=== PATIENT | female | born 1985 | race Caucasian/White ===

== ENCOUNTER 2018-11-07 05:27 | Day surgery (SDC) | payer OTHER ==
[~2018-11-07 05:27] MED LIST: PROTONIX40 MG PO; SEPTRA DS TABLE1 TAB PO
[2018-11-07] MEDS ORDERED: NEXIUM 24HR20 M1 PO (08:11)
[2018-11-07] MEDS ORDERED: CARAFATE1 GM PO (08:13)
== END 2018-11-07 10:15 | disposition home or self-care (01) ==
LOC: AMB-ENDOS 05:27
DX: D13.1 Benign neoplasm of stomach (principal)